=== PATIENT | male | born 1950 | race Hispanic/Latino ===

== ENCOUNTER → 2024-11-16 | Outpatient (CLI) | payer MEDICARE ==
--- NOTE | 2024-11-16 11:33 | HMCIMG ---
KNEE/PATELLA 1-2VWS LT REASON: KNEE KPINT REPLACEMENT STATUS TECHNIQUE: 2 views were obtained. FINDINGS: There is a total joint prosthesis in place. Hardware appears intact. There are extensive osteochondral loose bodies visible in the joint space. There is some dystrophic calcification in the medial soft tissues of the distal thigh as well. There are no visible fractures. IMPRESSION: 1. Hardware appears intact. 2. Probable multiple osteochondral loose bodies in the joint space as well as some dystrophic calcifications.
== END | disposition home or self-care (01) ==
LOC: RAH 10:37
PROVIDERS: ATTEND Internal Medicine
DX: M25.862 Other specified joint disorders, left knee (principal); M23.92 Unspecified internal derangement of left knee; Z96.659 Presence of unspecified artificial knee joint
CPT/HCPCS: 73560